=== PATIENT | male | born 1940 | race Caucasian/White ===

== ENCOUNTER → 2018-09-02 | Outpatient (CLI) | payer OTHER ==
[~2018-09-02] MED LIST: ALEVE220 M1 PO; ALLOPURINOL300 MG PO; ASPIRIN81 MG PO; ATENOLOL25 MG PO; AZOR 10-20 MG1 EACH PO; AZOR 10-40 MG1 EACH PO; BUMETANIDE1 MG PO; FOLIC ACID PO; FOLIC ACID0.8 MG PO; LIDOCAINE TOP; LIPITOR20 MG PO; LIPITOR40 MG PO; MAGNESIUM400 MG PO; OMACOR PO; OMEPRAZOLE40 MG PO; PLAVIX75 MG PO; POTASSIUM PO; POTASSIUM99 M1 PO; SLOW-MAG64 MG PO; VITAMIN C500 M2 PO; VITAMIN D1000 UNIT PO; ZETIA10 MG PO; [UNRECOGNIZED DRUG - OTHER] PO
--- NOTE | 2018-09-02 19:01 | Diagnostic Imaging Report ---
EXAMINATION: PA and lateral views of the chest. COMPARISON: None CLINICAL HISTORY: Edema DISCUSSION: Lines/tubes: None. Lungs: The lungs are well inflated and clear. No pneumonia or pulmonary edema. Pleura: No pleural effusion or pneumothorax. Heart and mediastinum: The cardiomediastinal silhouette is normal. Bones and soft tissues: No acute bony abnormalities. IMPRESSION: No acute cardiopulmonary abnormalities. Signed by: Dr. Pranav Bocanegra M.D. on 09/02/2018 6:58 PM
== END ==
LOC: RAD 15:59
PROVIDERS: ATTEND Family Medicine
DX: R09.89 Other specified symptoms and signs involving the circulatory and respiratory systems (principal); R60.9 Edema, unspecified
CPT/HCPCS: 71046; 93970